=== PATIENT | male | born 1960 | race Caucasian/White ===

== ENCOUNTER 2022-09-16 11:05 | Emergency (ER) | payer MEDICAID, OTHER ==
[~2022-09-16] VITALS: Ht 182.9 cm; Wt 140.0 kg
[2022-09-16] MEDS ORDERED: AML5T PO (12:23)
[2022-09-16 12:25] VITALS: BP 149/89
== END 2022-09-16 12:41 | disposition home or self-care (01) ==
LOC: ER 11:05
DX: I10 Essential (primary) hypertension (principal); J44.9 Chronic obstructive pulmonary disease, unspecified
CPT/HCPCS: 93005